=== PATIENT | female | born 1965 ===

== ENCOUNTER 2023-02-28 16:20 | Inpatient (IN) | payer OTHER ==
[~2023-02-28] VITALS: Ht 165.1 cm; Wt 97.1 kg
[2023-03-02] MEDS ORDERED: CYMBALTA60 MG PO (07:53)
[2023-03-02] MEDS ORDERED: ZETIA10 MG PO (07:53)
[2023-03-02] MEDS ORDERED: SIMPONI50 MG/0.5 (07:54)
[2023-03-02] MEDS ORDERED: CANDESARTAN CILE8 MG PO (07:54)
[2023-03-02] MEDS ORDERED: CLONAZEPAM0.5 MG PO (07:54)
[2023-03-07] MEDS ORDERED: FLONASE16 GM (10:18)
[2023-03-07] MEDS ORDERED: REFRESH OPTIVE1 EAC2 (10:18)
[2023-03-07] MEDS ORDERED: CELECOXIB200 MG (10:18)
[2023-03-07] MEDS ORDERED: DESLORATADINE5 MG (10:18)
[2023-03-07] MEDS ORDERED: OFLOXACIN5 ML (10:18)
== END 2023-03-09 11:52 | disposition home or self-care (01) | DRG 330 ==
LOC: SURH 03-07 07:38 → O/R 03-07 07:38 → SURG 03-07 11:30 → SURH 03-07 13:39
PROVIDERS: ADMIT Colon & Rectal Surgery; ATTEND Colon & Rectal Surgery
PROC: 0DBP4ZZ Excision of Rectum, Percutaneous Endoscopic Approach (ICD-10-PCS; 2023-03-07)
PROC: 0DJD8ZZ Inspection of Lower Intestinal Tract, Via Natural or Artificial Opening Endoscopic (ICD-10-PCS; 2023-03-07)
PROC: 0DTN4ZZ Resection of Sigmoid Colon, Percutaneous Endoscopic Approach (ICD-10-PCS; principal; 2023-03-07 13:15)
DX: K57.32 Diverticulitis of large intestine without perforation or abscess without bleeding (principal); K92.1 Melena; R59.0 Localized enlarged lymph nodes; G47.30 Sleep apnea, unspecified; I11.9 Hypertensive heart disease without heart failure; Z20.822 Contact with and (suspected) exposure to COVID-19